=== PATIENT | female | born 1970 | race Caucasian/White ===

== ENCOUNTER 2016-04-12 14:12 | Emergency (ER) | payer MEDICARE, OTHER ==
[~2016-04-12] VITALS: Ht 167.6 cm; Wt 72.6 kg
[~2016-04-12 14:12] MED LIST: ALPR0.5T PO; FLUT110A; GRAN1TAB2; HYOS0.12; METH-562; METH2.5T30 IM; METO25TA3; ONDA8TAB6; PERCOCET PO; PLAQUENIL PO; PROVENTIL HFA; ZOLP10TA
[2016-04-12 15:09] LABS: Basophils # (auto) 0 uL; Basophils % (auto) 0.6 % (0.0-2.0); Eosinophils # (auto) 0.4 uL; Eosinophils % (auto) 5.9 % (0.0-7.0); Hematocrit 27.9 % (36.0-46.0); Hemoglobin 9.1 g/dL (12.2-16.2); Lymphocytes # (auto) 1.6 uL; Lymphocytes % (auto) 25.5 % (10.0-50.0); Mean Corpuscular Hemoglobin 27.4 pg (28.0-32.0); Mean Corpuscular Hgb Conc. 32.5 g/dL (32.0-36.0); Mean Corpuscular Volume 84.4 fL (80.0-100.0); Mean Platelet Volume 8.3 fL (7.4-10.4); Monocytes # (auto) 0.7 uL; Monocytes % (auto) 10.2 % (0.0-12.0); Neutrophils # (auto) 3.7 uL; Neutrophils % (auto) 57.8 % (37.0-80.0); Platelet Count (auto) 231 10^3/uL (140-450); Red Cell Distribution Width 18.5 % (11.6-16.0); White Blood Cell 6.5 10^3/uL (4.4-10.8)
[2016-04-12] MEDS ORDERED: LAMO200T2 PO (15:18)
[2016-04-12] MEDS ORDERED: TOPI100T29 PO (15:18)
[2016-04-12] MEDS ORDERED: GABA-494 PO (15:23)
[2016-04-12 15:27] LABS: BUN/Creatinine Ratio 21.1; Calcium 8.2 mg/dL (8.5-10.1); Potassium 4.6 mmol/L (3.5-5.1)
[2016-04-12] MEDS ORDERED: ESTR0.035 TD (15:27)
[2016-04-12] MEDS ORDERED: SODIUM CHLORIDE 0.9% 1,000 ML IVB ONE (16:12)
[2016-04-12] MEDS ORDERED: ADAL40KI2 SC (16:19)
[2016-04-12 16:40] LABS: Magnesium 2.5 mg/dL (1.6-2.6)
[2016-04-12 17:51] LABS: Urine RBC None Seen /hpf (0 - 4)
[2016-04-12 19:22] LABS: Urine Bilirubin Negative (Negative); Urine Blood Negative /uL (Negative); Urine Color Yellow (Yellow); Urine Glucose Normal (Normal); Urine Ketone Negative (Negative); Urine Nitrite Negative (Negative); Urine Squamous Epithelial Cell FEW /hpf (<5); Urine Urobilinogen Normal (Negative)
[2016-04-12 19:54] VITALS: BP 152/88
== END 2016-04-12 20:04 | disposition home or self-care (01) ==
LOC: ER 14:21
DX: G40.909 Epilepsy, unspecified, not intractable, without status epilepticus (principal); D64.9 Anemia, unspecified; K50.90 Crohn's disease, unspecified, without complications; M32.9 Systemic lupus erythematosus, unspecified; J45.909 Unspecified asthma, uncomplicated; Z90.710 Acquired absence of both cervix and uterus; Z90.49 Acquired absence of other specified parts of digestive tract
CPT/HCPCS: 36415; 70450; 71010; 80048; 80320; 81001; 83735; 84443; 85025; 93005; 94761; 96360; 99285; G0434; J7030

== ENCOUNTER 2016-08-06 03:07 | Inpatient (IN) | payer BC, MEDICARE ==
[~2016-08-06] VITALS: Ht 170.2 cm; Wt 70.9 kg
[~2016-08-06 03:07] MED LIST changes: +ADAL40KI2 SC; +ESTR0.035 TD; -FLUT110A; +GABA-494 PO; -GRAN1TAB2; -HYOS0.12; +LAMO200T2 PO; -METH-562; -METH2.5T30 IM; -METO25TA3; +TOPI100T29 PO
[2016-08-06] MEDS ORDERED: SODIUM CHLORIDE 0.9% 1,000 ML IV ONE (07:38)
[2016-08-06] MEDS ORDERED: cefTRIAXone 1GM/50ML D5W 50 ML IV ONE (07:45)
[2016-08-06 08:11] LABS: INR 0.97 (0.9-1.15); Partial Thromboplastin Time 28.3 sec (22.64-33.71); Prothrombin Time 10.6 sec (9.37-12.3)
[2016-08-06 08:12] LABS: Albumin 3.9 g/dL (3.4-5.0); Alkaline Phosphatase 66 U/L (45-117); Anion Gap 11 (5-15); Aspartate Aminotransferase 34 U/L (15-37); BUN/Creatinine Ratio 15.9; Bilirubin, Total 0.2 mg/dL (0.2-1.0); Blood Urea Nitrogen 17 mg/dL (7-18); Calcium 8.6 mg/dL (8.5-10.1); Carbon Dioxide 21 mmol/L (21-32); Chloride 112 mmol/L (98-107); GFR African American 70 mL/min; GFR Non-African American 58 mL/min; Glucose 94 mg/dL (74-106); Magnesium 2.6 mg/dL (1.6-2.6); Neutrophils % (auto) 54.7 % (37.0-80.0); Sodium 144 mmol/L (136-145); Total Protein 7.8 g/dL (6.4-8.2); White Blood Cell 4.6 10^3/uL (4.4-10.8)
[2016-08-06 08:13] LABS: Anisocytosis Slight; Basophils # (auto) 0 uL; Basophils % (auto) 0.4 % (0.0-2.0); Eosinophils # (auto) 0.1 uL; Eosinophils % (auto) 2.3 % (0.0-7.0); Hematocrit 36.7 % (36.0-46.0); Lymphocytes # (auto) 1.6 uL; Lymphocytes % (auto) 34.6 % (10.0-50.0); Mean Corpuscular Hemoglobin 28.5 pg (28.0-32.0); Mean Corpuscular Hgb Conc. 32.8 g/dL (32.0-36.0); Mean Corpuscular Volume 86.9 fL (80.0-100.0); Mean Platelet Volume 9.6 fL (7.4-10.4); Monocytes # (auto) 0.4 uL; Neutrophils # (auto) 2.5 uL; Platelet Count (auto) 282 10^3/uL (140-450); Platelet Estimate Adequate; Red Cell Distribution Width 21.4 % (11.6-16.0)
[2016-08-06 08:14] LABS: Ovalocytes FEW
[2016-08-06] MEDS ORDERED: HYDROcodone-ACET 5/325MG TAB PO ONE (08:15)
[2016-08-06] MEDS ORDERED: LACTULOSE 20Gm/30ML SOLN PO PRN (09:15)
[2016-08-06] MEDS ORDERED: LORazepam 2MG/ML-1ML VIAL IV PRN ×2 (09:15→20:15)
[2016-08-06] MEDS ORDERED: ALBUTEROL SULF 2.5 MG/0.5ML(0.5%) NEB SOLN NEB PRN (09:15)
[2016-08-06] MEDS ORDERED: ACETAMINOPHEN 500 MG TAB PO PRN (09:15)
[2016-08-06] MEDS ORDERED: NITROGLYCERIN 0.4 MG SL TAB SL PRN (09:15)
[2016-08-06 09:38] LABS: Cholesterol 208 mg/dL (< 200); HDL Cholesterol 63 mg/dL (40-59); LDL Cholesterol 125 mg/dL (< 100); Triglycerides 83 mg/dL (< 150)
[2016-08-06] MEDS ORDERED: lamoTRIgine 100 MG TAB PO SCH (10:00)
[2016-08-06] MEDS ORDERED: ASPirin 81 mg TAB PO SCH (10:00)
[2016-08-06] MEDS ORDERED: HYDROXYCHLOROQUINE SULFATE 200 MG TAB PO SCH (10:00)
[2016-08-06] MEDS: OXYCODONE W/ ACETAMINOPHEN 5/325MG TABLET PO PRN ×2 (10:01→18:53)
[2016-08-06] MEDS: TOPIRAMATE 100 MG TAB PO SCH ×2 (11:02→21:47)
[2016-08-06] MEDS: ENOXAPARIN SOD 40 MG/0.4 ML SYRINGE SC SCH (11:03)
[2016-08-06] MEDS: SODIUM CHLORIDE 0.9% 1,000 ML IV SCH ×2 (11:09→21:52)
[2016-08-06] MEDS ORDERED: SODIUM CHLORIDE 0.9 % NEB SOLN 3ML NEB ONE (12:22)
[2016-08-06] MEDS: HYDROmorphone HCL 2 MG/ML VL IV PRN ×3 (12:43→21:47)
[2016-08-06 15:53] LABS: Temperature: 23.3 C (20.0-25.0)
[2016-08-06] MEDS ORDERED: TIZA4CAP5 PO (16:04)
[2016-08-06] MEDS ORDERED: ADAL40KI SC (16:04)
[2016-08-06] MEDS ORDERED: OXY10CRT PO (16:04)
[2016-08-06 16:24] VITALS: BP 142/89
[2016-08-06] MEDS: ALPRAZolam 0.5 MG TAB PO SCH ×2 (17:31→21:48)
[2016-08-06] MEDS: GABAPENTIN 100 MG CAP PO SCH ×2 (17:31→21:48)
[2016-08-06] MEDS: ONDANSETRON HCL 4 MG/2 ML VIAL IV PRN ×2 (17:37→21:54)
[2016-08-06 19:26] LABS: Urine Bilirubin Negative (Negative); Urine Color Yellow (Yellow); Urine Glucose Normal (Normal); Urine Ketone Negative (Negative); Urine Nitrite Negative (Negative); Urine RBC 12 /hpf (0 - 4); Urine Squamous Epithelial Cell FEW /hpf (<5); Urine Urobilinogen Normal (Negative); Urine pH 7.5 (5.0-8.0)
[2016-08-06 19:28] LABS: Urine Blood 1+ /uL (Negative)
[2016-08-06 19:51] VITALS: BP 142/89
[2016-08-06 20:00] VITALS: BP 152/83
[2016-08-06] MEDS ORDERED: CYANOCOBALAMIN (B-12) 1000 MCG/1 ML VIAL IM ONE (20:00)
[2016-08-06 20:23] VITALS: BP 152/83
[2016-08-06] MEDS: lamoTRIgine 100 MG TAB PO SCH (21:47)
[2016-08-06] MEDS: ZOLPIDEM TARTRATE 5 MG TAB PO PRN (21:47)
[2016-08-06] MEDS: ATORVASTATIN 20 MG TAB PO SCH (21:49)
[2016-08-07] VITALS (7 sets, daily range): BP systolic 138–153; BP diastolic 80–97
[2016-08-07] MEDS: HYDROmorphone HCL 2 MG/ML VL IV PRN ×6 (01:51→22:39)
[2016-08-07] MEDS: ONDANSETRON HCL 4 MG/2 ML VIAL IV PRN ×6 (01:51→22:39)
[2016-08-07] MEDS: ALPRAZolam 0.5 MG TAB PO SCH ×3 (05:54→22:40)
[2016-08-07] MEDS: GABAPENTIN 100 MG CAP PO SCH ×3 (05:54→22:40)
[2016-08-07 06:01] LABS: Cholesterol 165 mg/dL (< 200); HDL Cholesterol 54 mg/dL (40-59); LDL Cholesterol 95 mg/dL (< 100); Triglycerides 81 mg/dL (< 150)
[2016-08-07] MEDS: OXYCODONE W/ ACETAMINOPHEN 5/325MG TABLET PO PRN (06:55)
[2016-08-07] MEDS: cefTRIAXone 1GM/50ML D5W 50 ML IV SCH (08:50)
[2016-08-07] MEDS: TOPIRAMATE 100 MG TAB PO SCH ×2 (09:43→22:40)
[2016-08-07] MEDS: CYANOCOBALAMIN 500 MCG TAB PO SCH (09:43)
[2016-08-07] MEDS: lamoTRIgine 100 MG TAB PO SCH ×2 (09:44→22:41)
[2016-08-07] MEDS: ENOXAPARIN SOD 40 MG/0.4 ML SYRINGE SC SCH (09:44)
[2016-08-07] MEDS: SODIUM CHLORIDE 0.9% 1,000 ML IV SCH ×2 (09:55→22:40)
[2016-08-07] MEDS: HYDROXYCHLOROQUINE SULFATE 200 MG TAB PO SCH ×3 (14:24→22:00)
[2016-08-07] MEDS: ATORVASTATIN 20 MG TAB PO SCH (22:00)
[2016-08-07] MEDS: ZOLPIDEM TARTRATE 5 MG TAB PO PRN (22:54)
[2016-08-08] MEDS: HYDROmorphone HCL 2 MG/ML VL IV PRN ×5 (03:50→21:55)
[2016-08-08] MEDS: ONDANSETRON HCL 4 MG/2 ML VIAL IV PRN ×5 (03:50→21:55)
[2016-08-08 05:00] VITALS: BP 132/77
[2016-08-08] MEDS: ALPRAZolam 0.5 MG TAB PO SCH ×3 (05:40→21:41)
[2016-08-08] MEDS: GABAPENTIN 100 MG CAP PO SCH ×3 (05:40→21:40)
[2016-08-08 08:00] VITALS: BP 131/93
[2016-08-08 08:04] LABS: Basophils # (auto) 0 uL; Basophils % (auto) 0.3 % (0.0-2.0); CONDITION Y; DEFINITIVE SEE PRINTOUT; Eosinophils # (auto) 0.3 uL; Eosinophils % (auto) 6.4 % (0.0-7.0); Hemoglobin 10.7 g/dL (12.2-16.2); Lymphocytes % (auto) 47.1 % (10.0-50.0); Mean Corpuscular Hemoglobin 27.9 pg (28.0-32.0); Mean Corpuscular Hgb Conc. 32.4 g/dL (32.0-36.0); Mean Corpuscular Volume 86.2 fL (80.0-100.0); Mean Platelet Volume 8.6 fL (7.4-10.4); Monocytes # (auto) 0.3 uL; Monocytes % (auto) 6.6 % (0.0-12.0); Neutrophils # (auto) 1.7 uL; Neutrophils % (auto) 39.6 % (37.0-80.0); Platelet Count (auto) 269 10^3/uL (140-450); SUSPECT SEE PRINTOUT; White Blood Cell 4.2 10^3/uL (4.4-10.8)
[2016-08-08 08:07] LABS: Red Cell Distribution Width 21.2 % (11.6-16.0)
[2016-08-08 08:25] LABS: BUN/Creatinine Ratio 13.9; Calcium 8.4 mg/dL (8.5-10.1); Potassium 4.1 mmol/L (3.5-5.1)
[2016-08-08] MEDS: lamoTRIgine 100 MG TAB PO SCH ×2 (08:39→21:41)
[2016-08-08] MEDS: TOPIRAMATE 100 MG TAB PO SCH ×2 (08:40→21:39)
[2016-08-08] MEDS: cefTRIAXone 1GM/50ML D5W 50 ML IV SCH (08:40)
[2016-08-08] MEDS: SODIUM CHLORIDE 0.9% 1,000 ML IV SCH (08:40)
[2016-08-08] MEDS: HYDROXYCHLOROQUINE SULFATE 200 MG TAB PO SCH ×3 (08:40→21:45)
[2016-08-08] MEDS: CYANOCOBALAMIN 500 MCG TAB PO SCH (08:40)
[2016-08-08 08:41] LABS: Anisocytosis Slight; Platelet Estimate Adequate
[2016-08-08 09:49] VITALS: BP 131/93
[2016-08-08] MEDS ORDERED: PHENAZOPYRIDINE HCL 100 MG TAB PO ONE (12:15)
[2016-08-08 14:58] VITALS: BP 127/78
[2016-08-08 16:55] VITALS: BP 111/69
[2016-08-08] MEDS: PHENAZOPYRIDINE HCL 100 MG TAB PO SCH (18:08)
[2016-08-08 22:00] VITALS: BP 139/80
[2016-08-08] MEDS: ZOLPIDEM TARTRATE 5 MG TAB PO PRN (23:00)
[2016-08-09] MEDS: ONDANSETRON HCL 4 MG/2 ML VIAL IV PRN ×3 (01:56→11:04)
[2016-08-09] MEDS: HYDROmorphone HCL 2 MG/ML VL IV PRN ×3 (01:56→11:04)
[2016-08-09 05:00] VITALS: BP 113/71
[2016-08-09] MEDS: GABAPENTIN 100 MG CAP PO SCH ×2 (05:29→13:46)
[2016-08-09] MEDS: ALPRAZolam 0.5 MG TAB PO SCH ×2 (05:29→13:46)
[2016-08-09 06:19] LABS: Basophils # (auto) 0 uL; Basophils % (auto) 0.5 % (0.0-2.0); CONDITION Y; DEFINITIVE SEE PRINTOUT; Eosinophils # (auto) 0.2 uL; Eosinophils % (auto) 4.5 % (0.0-7.0); Hematocrit 33.7 % (36.0-46.0); Hemoglobin 11.1 g/dL (12.2-16.2); Lymphocytes # (auto) 2.3 uL; Lymphocytes % (auto) 44.5 % (10.0-50.0); Mean Corpuscular Hemoglobin 28.5 pg (28.0-32.0); Mean Corpuscular Volume 86.3 fL (80.0-100.0); Mean Platelet Volume 8.9 fL (7.4-10.4); Monocytes # (auto) 0.5 uL; Monocytes % (auto) 8.8 % (0.0-12.0); Neutrophils # (auto) 2.1 uL; Neutrophils % (auto) 41.7 % (37.0-80.0); Platelet Count (auto) 291 10^3/uL (140-450); White Blood Cell 5.2 10^3/uL (4.4-10.8)
[2016-08-09 06:23] LABS: Red Cell Distribution Width 21.2 % (11.6-16.0)
[2016-08-09 07:30] LABS: Anisocytosis Slight; Platelet Estimate Adequate
[2016-08-09 08:00] VITALS: BP 107/73
[2016-08-09 08:51] VITALS: BP 107/73
[2016-08-09] MEDS: HYDROXYCHLOROQUINE SULFATE 200 MG TAB PO SCH (09:02)
[2016-08-09] MEDS: TOPIRAMATE 100 MG TAB PO SCH (09:39)
[2016-08-09] MEDS: cefTRIAXone 1GM/50ML D5W 50 ML IV SCH (09:39)
[2016-08-09] MEDS: CYANOCOBALAMIN 500 MCG TAB PO SCH (09:39)
[2016-08-09] MEDS: lamoTRIgine 100 MG TAB PO SCH (09:39)
[2016-08-09] MEDS: PHENAZOPYRIDINE HCL 100 MG TAB PO SCH ×2 (09:39→11:08)
[2016-08-09] MEDS ORDERED: ONDA4TAB8 SL (10:32)
[2016-08-09] MEDS ORDERED: NITR-52 PO (10:32)
[2016-08-09] MEDS ORDERED: CYAN500T2 PO (10:36)
[2016-08-09 11:10] VITALS: BP 107/73
[2016-08-09 12:25] VITALS: BP 105/83
== END 2016-08-09 14:05 | disposition home or self-care (01) | DRG 312 ==
LOC: ER 03:07 → TELE 03:08 → TELE-E-ADS 14:01 → TELE-EAST 15:27 → EAST 08-08 12:21
PROVIDERS: ADMIT Internal Medicine; ATTEND Internal Medicine
DX: R55 Syncope and collapse (principal); K50.90 Crohn's disease, unspecified, without complications; N39.0 Urinary tract infection, site not specified; E53.8 Deficiency of other specified B group vitamins; H53.40 Unspecified visual field defects; H54.7 Unspecified visual loss; W18.39XA Other fall on same level, initial encounter; Y93.01 Activity, walking, marching and hiking; F40.240 Claustrophobia; G40.909 Epilepsy, unspecified, not intractable, without status epilepticus; I34.0 Nonrheumatic mitral (valve) insufficiency; E66.9 Obesity, unspecified; F41.9 Anxiety disorder, unspecified; S01.81XA Laceration without foreign body of other part of head, initial encounter; J45.909 Unspecified asthma, uncomplicated; M06.9 Rheumatoid arthritis, unspecified; M32.9 Systemic lupus erythematosus, unspecified; M79.7 Fibromyalgia; Z80.0 Family history of malignant neoplasm of digestive organs; Z86.61 Personal history of infections of the central nervous system; Z98.84 Bariatric surgery status; Z88.2 Allergy status to sulfonamides; Z88.8 Allergy status to other drugs, medicaments and biological substances; Z68.24 Body mass index [BMI] 24.0-24.9, adult; Z90.49 Acquired absence of other specified parts of digestive tract; Z90.710 Acquired absence of both cervix and uterus; Y92.098 Other place in other non-institutional residence as the place of occurrence of the external cause; Y99.8 Other external cause status; Z80.9 Family history of malignant neoplasm, unspecified
CPT/HCPCS: 12001; 12002; 36415; 70450; 71010; 72125; 80048; 80053; 80061; 80307; 81001; 82550; 82607; 82746; 83735; 84443; 84484; 85025; 85610; 85652; 85730; 87040; 87081; 87086; 93005; 93306; 93886; 94761; 95819; J0696; J2405